=== PATIENT | female | born 1945 | race Two or more races ===

== ENCOUNTER 2019-12-27 06:20 | Day surgery (SDC) | payer OTHER | END 2019-12-27 11:00 | disposition home or self-care (01) | LOC: AMB-ENDOS 06:20 → CIR.AMB 13:00 | PROVIDERS: ATTEND Colon & Rectal Surgery | DX: K62.89 Other specified diseases of anus and rectum (principal); K29.50 Unspecified chronic gastritis without bleeding; K44.9 Diaphragmatic hernia without obstruction or gangrene; K64.1 Second degree hemorrhoids ==